=== PATIENT | male | born 1985 | race African-American/Black ===

== ENCOUNTER 2021-07-12 22:08 | Emergency (ER) | payer OTHER ==
[~2021-07-12] VITALS: Ht 175.3 cm; Wt 81.6 kg
[2021-07-12] MEDS ORDERED: IV NORMAL SALINE 1000 ML BAG IV ONE (22:30)
[2021-07-12 22:38] LABS: HEMATOCRIT 45.2 % (36.7-47.1); MEAN CORPUSCULAR HEMOGLOBIN 29.1 uug (23.8-33.4); MEAN CORPUSCULAR VOLUME 86.9 fL (73.0-96.2); PLATELET COUNT (AUTO) 255 K/uL (152-348)
--- NOTE | 2021-07-12 22:40 | NUR ---
pt in room 4a bib ra. pt a/o denies pain.
[2021-07-12 22:47] LABS: CREATININE 1.5 mg/dL (0.6-1.3); POTASSIUM 4.3 mmol/L (3.5-5.1)
[2021-07-12 22:51] LABS: BILIRUBIN,DIRECT 0.2 mg/dL (0.0-0.2); BILIRUBIN,TOTAL 0.5 mg/dL (0.2-1.0); TOTAL PROTEIN, SERUM 7.9 g/dL (6.4-8.2)
[2021-07-12 22:52] LABS: ETHANOL < 3 MG/DL (0-0)
[2021-07-12 23:52] LABS: CREATINE KINASE, TOTAL 1324 U/L (39-308)
--- NOTE | 2021-07-13 00:13 | NUR ---
spoke with the patients aunt Rufina Pino at [phone]. will call her back for update after ER doctor has fully evaluated the pt.
--- NOTE | 2021-07-13 00:35 | NUR ---
pts mother Sary Salmon called gave her update and Dr. Rosario speaking with her.
[2021-07-13] MEDS ORDERED: IV NS 1000 ML 1,000 ML IV ONE (00:45)
--- NOTE | 2021-07-13 00:45 | NUR ---
Dr. Rosario spoke with pts mother and she informed him that he is suicidial and wants to kill himself. Dr. Rosario spoke with the patient and he says he wants to kill himself, called wash house supervisor for a sitter she says there is not one available and maybe on the dayshift.
[2021-07-13 01:14] LABS: ACETAMINOPHEN < 2.0 ug/mL (10-30)
--- NOTE | 2021-07-13 02:25 | NUR ---
Art crisis nurse at bedside.
[2021-07-13] MEDS ORDERED: OLANZAPINE 10 MG VIAL IM ONE ×2 (02:45→03:08)
--- NOTE | 2021-07-13 06:42 | NUR ---
pt resting with eyes closed
--- NOTE | 2021-07-13 09:00 | NUR ---
pt had break fast,
--- NOTE | 2021-07-13 09:08 | NUR ---
7th grade social studies teacher at bedside talking to pt.
--- NOTE | 2021-07-13 10:10 | NUR ---
Michael Connors (social sciences instructor) she is working on possible transfer to [facility], she will call back with update.
--- NOTE | 2021-07-13 10:23 | NUR ---
Clinical Social Work Note SW faxed patient's clinicals to Noah at [facility] ([phone]) for possible voluntary admission. Plan: [facility] will continue to follow up with Noah as well update ED.
--- NOTE | 2021-07-13 12:46 | NUR ---
LUNCH TRAY PROVIDED. PT EATING WITH GOOD APETITE.
--- NOTE | 2021-07-13 13:36 | NUR ---
Clinical Social Work Note SW received a call from Art ([phone]) from [facility] who informed SW that patient was accepted. [place] provided nursing registered nurse supervisor contact (Lucretia [phone]) in order for RN to call for the nursing report. Art explained that once nursing report has been completed, [facility] will then coordinate transportation. SW informed Sepi RN, with information regarding nursing report. Plan: [facility] will continue to follow up with [facility] and ED to facilitate transfer.
--- NOTE | 2021-07-13 14:00 | NUR ---
CALLED NARGIS AND GAVE REPORT [phone]
--- NOTE | 2021-07-13 15:13 | NUR ---
[facility] AT BEDSIDE TO TRANSFER THE PT TO [facility]. PT ALREADY AGREED WITH THE PLAN AND SIGNED THE CONSENT FOR TRANSFER. Addendum: 07/13/21 at 1516 by SISI PT REAMINED IN THE BED RESTING, AROUSABLE, VSS DURING THE STAY. PT HAD BF AND LUNCH.
== END 2021-07-13 15:17 ==
LOC: ER 22:10
DX: F20.0 Paranoid schizophrenia (principal); F31.9 Bipolar disorder, unspecified; Z91.14 Patient's other noncompliance with medication regimen; D72.829 Elevated white blood cell count, unspecified; M62.82 Rhabdomyolysis; N28.9 Disorder of kidney and ureter, unspecified; Z20.822 Contact with and (suspected) exposure to COVID-19; J45.909 Unspecified asthma, uncomplicated; Z59.00 Homelessness unspecified
CPT/HCPCS: 36415; 83605; 83690; 85025; 93005; A4663; G0480; J2358; J7030